=== PATIENT | male | born 1950 ===

== ENCOUNTER → 2019-01-17 | Outpatient (REF) | payer OTHER | END | disposition home or self-care (01) | DRG 556 | LOC: MRI 07:18 | PROVIDERS: ATTEND Internal Medicine | DX: M25.561 Pain in right knee (principal) ==

== ENCOUNTER 2019-03-22 00:17 | Emergency (ER) | payer OTHER ==
[~2019-03-22] VITALS: Ht 167.6 cm; Wt 76.0 kg
[2019-03-22 01:55] VITALS: BP 132/90
== END 2019-03-22 01:55 | disposition home or self-care (01) | DRG 159 ==
LOC: ED 00:17
PROC: 0HQ1XZZ Repair Face Skin, External Approach (ICD-10-PCS; principal; 2019-03-22)
DX: S01.511A Laceration without foreign body of lip, initial encounter (principal); I10 Essential (primary) hypertension; W18.2XXA Fall in (into) shower or empty bathtub, initial encounter; Y93.E1 Activity, personal bathing and showering; Y92.142 Bathroom in prison as the place of occurrence of the external cause